=== PATIENT | male | born 1970 | race Caucasian/White ===

== ENCOUNTER → 2018-12-20 | Outpatient (CLI) | payer BC ==
[~2018-12-20] MED LIST: CRUTCH2 USE; IBUP800 PO; OXYACE5T PO
[2018-12-20 17:59] LABS: Influenza A Positive (NEGATIVE); Influenza B Negative (NEGATIVE)
== END | disposition home or self-care (01) ==
LOC: LAB SHORT 16:27 → LAB 16:27
PROVIDERS: Nurse Practitioner Family
DX: R05 Cough (principal)
CPT/HCPCS: 87804

== ENCOUNTER → 2023-01-03 | Outpatient (CLI) | payer BC ==
[2023-01-04 18:33] LABS: Influenza A, PCR NEGATIVE (NEGATIVE); Influenza B, PCR NEGATIVE (NEGATIVE); Resp Syncytial Virus, PCR NEGATIVE (NEGATIVE); SARS-Cov-2 (COVID-19) PCR, MMC NEGATIVE (NEGATIVE)
== END | disposition home or self-care (01) ==
LOC: LAB SHORT 17:00
PROVIDERS: Family Medicine
DX: J02.9 Acute pharyngitis, unspecified (principal)
CPT/HCPCS: 0241U

== ENCOUNTER 2024-01-15 06:13 | Inpatient (IN) | payer BC ==
[~2024-01-15] VITALS: Ht 175.3 cm; Wt 151.9 kg
[2024-01-15] MEDS ORDERED: LORazepam 2 MG/ML 1ML Injection IV ONE (06:25)
[2024-01-15] MEDS ORDERED: TOPI50 PO (06:27)
[2024-01-15 06:38] LABS: Hematocrit 46.7 % (37.0-53.0); Hemoglobin 15.1 g/dL (13.5-17.5); Mean Corpuscular HGB 30.7 pg (26.0-34.0); Mean Corpuscular HGB Conc 32.3 g/dL (31.5-36.5); Mean Corpuscular Volume 95 fL (80-100); Platelet Count 270 K/mm3 (150-400); RDW Coefficient Variation 13.5 % (11.7-14.2); RDW Standard Deviation 47.3 fL (35.1-46.3); Red Blood Cell Count 4.92 M/mm3 (4.30-5.90); White Blood Cell Count 14.19 K/mm3 (4.00-11.30)
[2024-01-15 06:58] LABS: Albumin, Blood 3.5 g/dL (3.4-5.0); Albumin/Globulin Ratio 0.8 (0.8-1.8); Bilirubin, Total 0.7 mg/dL (0.1-1.0); Bun/Creatinine Ratio 9.6 (12.0-20.0); Calcium, Blood 8.6 mg/dL (8.5-10.1); Creatinine, Blood 1.14 mg/dL (0.60-1.20); Globulin, Blood 4.5 g/dL (2.2-4.0); Potassium, Blood 3.2 mmol/L (3.5-5.5)
[2024-01-15 07:02] LABS: BASOPHILS ABSOLUTE MAN 0.14 K/mm3 (0.00-0.23); BASOPHILS PERCENT MAN 1 % (0-2); EOSINOPHILS ABSOLUTE MAN 0.28 K/mm3 (0.00-0.68); EOSINOPHILS PERCENT MAN 2 % (0-6); LYMPHOCYTES ABSOLUTE MAN 4.25 K/mm3 (0.84-5.20); LYMPHOCYTES PERCENT MAN 30 % (21-46); MONOCYTES ABSOLUTE MAN 0.99 K/mm3 (0.16-1.47); MONOCYTES PERCENT MAN 7 % (4-13); NEUTROPHILS ABSOLUTE MAN 8.51 K/mm3 (1.96-9.15); SEG NEUTROPHILS PERCENT MAN 60 % (41-73); TOTAL CELLS COUNTED 100
[2024-01-15] MEDS ORDERED: Aspirin 325 MG Tab PO ONE (07:05)
[2024-01-15 07:55] LABS: International Normalized Ratio 1.04; Prothrombin Time Results 10.9 Sec (9.7-11.5)
[2024-01-15] MEDS ORDERED: Heparin Sodium 5000 Units/ML 1ML MDV IV ONE (08:15)
[2024-01-15] MEDS ORDERED: Heparin Sodium,Porcine/0.5 NS 500 ML IV SCH (08:15)
[2024-01-15] MEDS ORDERED: FLU VACC QS2023-24(6MOS UP)/PF 60 MCG/0.5 ML SYRINGE IM SCH (09:15)
[2024-01-15] MEDS ORDERED: Ondansetron 4 MG TAB PO PRN (09:20)
[2024-01-15] MEDS ORDERED: Acetaminophen 650 MG Supp PR PRN (09:20)
[2024-01-15] MEDS ORDERED: OxyCODONE HCL 5 MG TAB PO PRN (09:20)
[2024-01-15] MEDS ORDERED: TraZODone HCl 50 MG Tab PO PRN (09:20)
[2024-01-15] MEDS ORDERED: Bisacodyl 10 MG Supp PR PRN (09:20)
[2024-01-15] MEDS ORDERED: Magnesium Hydroxide Conc 10 ML UDC PO PRN (09:20)
[2024-01-15] MEDS ORDERED: ALPRAZolam 0.5 MG Tab PO PRN (09:25)
[2024-01-15 11:29] VITALS: BP 148/91
--- NOTE | 2024-01-15 12:21 | NUR ---
UPDATE PT ARRIVED TO FLOOR FROM ED VIA GURNEY SLIDE TRANSFER. PT NORMALLY AMBULATORY, BUT STATES WHEN HE STOOD IN THE ED HE GOT DIZZY AND VERY SOB. BP STABLE. O2 SATS >90% ON 2L NC. HR SINUS TACH IN THE 120'S. PT DENIES ANY CP AT THIS TIME. PT REPORTS NO SOB AT REST. HEP GTT INFUSING UPON ARRIVAL AND THIS RN AND JESUS RN CHECKED ORDERS AND RATE TOGETHER. PT ORIENTED TO ROOM AND UNIT. DR. ARRIETA IN TO DISCUSS PLAN. WILL CONTINUE TO MONITOR CLOSELY
[2024-01-15 13:27] VITALS: BP 148/91
--- NOTE | 2024-01-15 14:00 | NUR ---
[facility] AIR TRANSPORT TO BE HERE WITHIN 15 MIN. REPORT CALLED TO HUNTER HURT AT [facility]. PT'S SPOUSE NOTIFIED.
[2024-01-15 15:44] VITALS: BP 148/91
[2024-01-15] MEDS ORDERED: Famotidine 20 MG Tab PO SCH (21:00)
[2024-01-15] MEDS ORDERED: Lactobacil 2-S.Thermo-Bifido 1 1 Cap PO SCH (21:00)
== END 2024-01-15 14:31 | disposition short-term general hospital (02) | DRG 175 ==
LOC: ER 06:13 → PCU 09:15
PROVIDERS: Emergency Medicine; ADMIT Hospitalist
DX: I26.09 Other pulmonary embolism with acute cor pulmonale (principal); J96.01 Acute respiratory failure with hypoxia; I21.4 Non-ST elevation (NSTEMI) myocardial infarction; Z68.42 Body mass index [BMI] 45.0-49.9, adult; G43.909 Migraine, unspecified, not intractable, without status migrainosus; E66.9 Obesity, unspecified; Z86.16 Personal history of COVID-19; Z88.0 Allergy status to penicillin; Z79.891 Long term (current) use of opiate analgesic
CPT/HCPCS: 71045; 71260; 80053; 83735; 83880; 84484; 85025; 85379; 85520; 85610; 85730; 93005; 93010; 94762; 96365-59; 96366; 96375-59; 96376-59; 99285-25; A9270; C8929; J1644; J2060; Q9957; Q9967

== ENCOUNTER 2024-11-25 13:28 | Emergency (ER) | payer BC ==
[~2024-11-25] VITALS: Ht 175.3 cm; Wt 140.6 kg
[~2024-11-25 13:28] MED LIST changes: +TOPI50 PO
[2024-11-25 14:14] LABS: BASOPHILS ABSOLUTE AUTO 0.07 K/mm3 (0.00-0.23); BASOPHILS PERCENT AUTO 1 % (0-2); EOSINOPHILS ABSOLUTE AUTO 0.09 K/mm3 (0.00-0.68); EOSINOPHILS PERCENT AUTO 1 % (0-6); Hemoglobin 13.8 g/dL (13.5-17.5); IMMATURE GRAN ABSOLUTE AUTO 0.04 K/mm3 (0.00-0.10); IMMATURE GRAN PERCENT AUTO 0 % (0-1); LYMPHOCYTES ABSOLUTE AUTO 2.05 K/mm3 (0.84-5.20); LYMPHOCYTES PERCENT AUTO 23 % (21-46); MONOCYTES ABSOLUTE AUTO 0.57 K/mm3 (0.16-1.47); MONOCYTES PERCENT AUTO 6 % (4-13); Mean Corpuscular HGB 31.8 pg (26.0-34.0); Mean Corpuscular HGB Conc 33.7 g/dL (31.5-36.5); Mean Corpuscular Volume 95 fL (80-100); Mean Platelet Volume 9.3 fL (9.1-12.4); NEUTROPHILS PERCENT AUTO 68 % (41-73); Platelet Count 226 K/mm3 (150-400); RDW Coefficient Variation 13.2 % (11.7-14.2); RDW Standard Deviation 45.8 fL (35.1-46.3); Red Blood Cell Count 4.34 M/mm3 (4.30-5.90); White Blood Cell Count 8.92 K/mm3 (4.00-11.30)
[2024-11-25 14:50] LABS: Albumin, Blood 3.2 g/dL (3.4-5.0); Albumin/Globulin Ratio 0.7 (0.8-1.8); Bun/Creatinine Ratio 12.9 (12.0-20.0); Calcium, Blood 8.8 mg/dL (8.5-10.1); Creatinine, Blood 0.93 mg/dL (0.60-1.20); Globulin, Blood 4.3 g/dL (2.2-4.0); Potassium, Blood 3.7 mmol/L (3.5-5.5); Total Protein, Blood 7.5 g/dL (6.4-8.2)
[2024-11-25] MEDS ORDERED: DiphenhydrAMINE HCl 50 MG/ML 1ML Vial IV ONE (17:20)
[2024-11-25] MEDS ORDERED: Prochlorperazine Edisylate 10 mg Vial IV ONE (17:20)
[2024-11-25] MEDS ORDERED: Ketorolac Tromethamine 15mg Vial IV ONE (17:20)
[2024-11-25] MEDS ORDERED: NS 1,000 ML IV SCH (17:20)
[2024-11-25] MEDS ORDERED: Dexamethasone Sod Phos 10 MG/ML 1ML VIAL IV ONE (17:25)
[2024-11-25 18:30] VITALS: BP 138/82
== END 2024-11-25 18:35 | disposition home or self-care (01) ==
LOC: ER 13:28
PROVIDERS: Student in an Organized Health Care Education/Training Program
DX: G43.909 Migraine, unspecified, not intractable, without status migrainosus (principal); Z79.899 Other long term (current) drug therapy; Z88.0 Allergy status to penicillin
CPT/HCPCS: 80053; 85025; 96361; 96374; 96375; 99284-25; J0780; J1100; J1200; J1885; J7030